=== PATIENT | female | born 1945 | race Caucasian/White ===

== ENCOUNTER → 2018-09-07 09:56 | Outpatient (CLI) | payer MEDICARE, BC, SELFPAY ==
--- NOTE | 2018-09-07 | DI.US.S_ITS ---
PROCEDURE: US ABD AORTA ANEURYSM SCREEN INDICATIONS: ABDOMINAL BRUIT TECHNIQUE: Real time scanning was performed of the aorta and iliac arteries, with image documentation. COMPARISON: None. FINDINGS: Aorta: Extensive aortic atherosclerosis is present. Proximal aortic diameter measures 2.4 cm. Mid-aorta measures 1.5 cm. Distal aortic diameter is 1.5 cm. Iliac arteries: Right common iliac artery measures 0.9 cm. Left common iliac artery measures 1.0 cm. IMPRESSION: Aortic atherosclerosis without evidence of aneurysm. Dictated by: Reynaldo Hoff M.D. on 09/07/2018 at 11:57 Approved by: Reynaldo Hoff M.D. on 09/07/2018 at 11:59
== END ==
PROVIDERS: Family Provider Ophthalmology; PCP Family Medicine Geriatric Medicine; Referring Provider Internal Medicine Cardiovascular Disease; Visit Provider Family Medicine Geriatric Medicine
DX: I70.0 Atherosclerosis of aorta (principal); R09.89 Other specified symptoms and signs involving the circulatory and respiratory systems
CPT/HCPCS: 76706

== ENCOUNTER → 2020-04-28 07:49 | Outpatient (CLI) | payer MEDICARE, BC, SELFPAY ==
--- NOTE | 2020-04-28 18:08 | DI.NM.S_ITS ---
DATE OF SERVICE: 04/28/2020 INDICATIONS: Chest pain, known history of RCA stent, hypertension, hyperlipidemia. RADIOPHARMACEUTICAL: A 26.1 millicurie technetium-99m Myoview IV was injected at stress and 8.7 millicurie technetium-99m Myoview IV was injected at rest. CARDIAC STRESS: The patient underwent exercise perfusion study under the supervision of an attending staff. She walked on Estuardo protocol for 7 minutes and 30 seconds and achieved 85% of target heart rate, functional aerobic impairment -38% and 10.1 METS of workload. Baseline blood pressure 142/80. The blood pressure about 180/100. The patient did not have any chest pain. Baseline rhythm was sinus with some artifacts. During exercise, there were significant artifacts. However, in the immediate recovery, there were no convincing ischemic changes. In recovery, there were some isolated premature atrial contractions. RAW DATA: Include there is increased subdiaphragmatic activity. GATED STUDY: Stress LV ejection fraction 71% without any obvious wall motion abnormalities. Resting end-diastolic volume 91 mL. TID ratio 1.11, which is within normal limits. Lung heart ratio 0.16, which is within normal limits. MYOCARDIAL PERFUSION SCAN: Stress supine, resting supine and stress prone images were compared to each other. Stress supine images revealed minimally decreased perfusion of mid septum. It got resolved during prone images. Prone images revealed normal myocardial perfusion. CONCLUSION: I will call this study a normal myocardial perfusion study with evidence of tissue attenuation artifact which got resolved during prone images. The patient walked on Estuardo protocol for 7 minutes and 30 seconds with functional aerobic impairment -38%. Normal heart rate response. There was mild hypertensive response. During stress, significant artifacts seen on EKG. However, in recovery, there were no significant sustained arrhythmias seen. Overall, this is a low risk exercise perfusion study. Debra Flores - RETAIL ACCOUNT SPECIALIST/adolph/sb doc#: [id number]/job#: [id number] dd: 04/28/2020 17:40:00 dt: 04/28/2020 18:00:00 DICTATING MD/COPIES TO: Orquidea Isaac MD COPIES MNE: GANESH;
== END ==
PROVIDERS: Family Provider Ophthalmology; PCP Family Medicine; Referring Provider Nurse Practitioner; Visit Provider Nurse Practitioner
DX: R07.9 Chest pain, unspecified (principal); I10 Essential (primary) hypertension; Z95.5 Presence of coronary angioplasty implant and graft
CPT/HCPCS: 78452; 93017; A9502

== ENCOUNTER → 2021-11-08 12:28 | Outpatient (CLI) | payer MEDICARE, BC, SELFPAY ==
--- NOTE | 2021-11-08 | DI.RAD.S_ITS ---
PROCEDURE: FL BARIUM SWALLOW INDICATIONS: Other dysphagia COMPARISON: None. FINDINGS: Function: Swallowing reflex is normal. No laryngotracheal penetration or aspiration. There is mild pooling of contrast material in the vallecula bilaterally which cleared with repeat swallows. Multiple tertiary contraction waves identified in the mid and distal esophagus compatible with moderate esophageal dysmotility. There is an area of mild narrowing in the mid esophagus mid esophagus distal to the aortic arch which delayed passage of 13 millimeter pill. No definite mucosal mass identified at the area of narrowing, however esophagus is difficult to evaluate due to inability of patient to take more than small sips of contrast material. No elicited gastroesophageal reflux. Morphology: Air-contrast images demonstrate normal mucosal morphology. Single contrast views show no extrinsic mass effects, or diverticula. Limited images of the stomach demonstrate normal appearance. IMPRESSION: 1. No laryngotracheal aspiration or penetration. 2. Short segment area of mild mid esophageal narrowing. Recommend endoscopy for further evaluation of the finding to exclude underlying neoplastic process. 3. Moderate esophageal dysmotility. Dictated by: Zeynep Marie MD, PhD on 11/08/2021 at 14:44 Approved by: Zeynep Marie MD, PhD on 11/08/2021 at 14:47
== END ==
PROVIDERS: Family Provider Ophthalmology; PCP Family Medicine; Referring Provider Family Medicine; Visit Provider Family Medicine
DX: R13.19 Other dysphagia (principal); K22.2 Esophageal obstruction; K22.4 Dyskinesia of esophagus
CPT/HCPCS: 74220

== ENCOUNTER → 2023-11-04 12:46 | Outpatient (CLI) | payer MEDICARE, BC, SELFPAY ==
--- NOTE | 2023-11-04 12:49 | DI.US.S_ITS ---
PROCEDURE: US CAROTID DOPPLER BI INDICATIONS: Personal history of transient ischemic attack (TIA TECHNIQUE: Color and pulse Doppler interrogation was performed of both carotid systems, with image documentation and velocity measurements. COMPARISON: None. FINDINGS: Stenosis calculations are based on SRU (Society [employer] in Ul[employer]) criteria. The flow velocities and the arterial waveforms are normal within both carotid arterial systems. Atherosclerotic plaque is seen on both sides, including shadowing calcified plaque. The estimated degree of internal carotid artery stenosis is less than 50%. Antegrade flow is confirmed within both vertebral arteries. IMPRESSION: No hemodynamically significant stenosis is seen. Atherosclerotic plaque is noted bilaterally. Dictated by: Kvng Francisco M.D. on 11/04/2023 at 13:57 Approved by: Kvng Francisco M.D. on 11/04/2023 at 13:57
== END ==
PROVIDERS: Family Provider Ophthalmology; PCP Family Medicine; Referring Provider Nurse Practitioner; Visit Provider Nurse Practitioner
DX: Z86.73 Personal history of transient ischemic attack (TIA), and cerebral infarction without residual deficits (principal); I65.23 Occlusion and stenosis of bilateral carotid arteries
CPT/HCPCS: 93880